=== PATIENT | male | born 1960 | race Caucasian/White ===

== ENCOUNTER 2023-10-27 21:34 | Inpatient (IN) | payer OTHER, SELFPAY ==
[2023-10-27 16:19] VITALS: BP 126/93
[2023-10-27] MEDS: NSS 1000 IV ×2 (16:54→22:39)
[2023-10-27 16:57] LABS: % Basophils 0.4 % (0-2); % Eosinophils 1.2 % (0-6); % Immature Granulocytes 0.2 % (0-0.5); % Lymphocytes 19.1 % (20.5-51.1); % Monocytes 8.6 % (1.7-9.3); % Neutrophils 70.5 % (42.2-75.2); Absolute Eosinophils 0.1 10^3/uL (0-0.7); Absolute Lymphocytes 1.7 10^3/uL (1.2-3.4); Absolute Monocytes 0.8 10^3/uL (0.1-0.6); Absolute Neutrophils 6.4 10^3/uL (1.4-6.5); Hematocrit 39.6 % (39.0-52.0); Hemoglobin 13.1 g/dL (13.0-18.0); Mean Corp Hgb Conc. 33.1 g/dL (33.0-37.0); Mean Corpuscular Volume 87.8 fL (80.0-94.0); Mean Platelet Volume 8.8 fL (7.4-10.4); Nucleated Red Blood Cells % 0 % (-); Platelet Count 344 10^3/uL (130-400); Red Blood Cell Count 4.51 10^6/uL (4.70-6.10); Red Cell Dist. Width 12.8 % (11.5-14.5); White Blood Cell Count 9.1 10^3/uL (4.8-10.8)
--- NOTE | 2023-10-27 17:01 | ED.GENMED ---
History of Present Illness
<Katheryn Hayes EXTENSION SERVICE ADVISOR - Last Filed: 10/29/23 13:38>
General
Chief Complaint: Abdominal Pain
Source: patient
Exam Limitations: none
Time Seen by Provider: 10/27/23 16:29
Nursing documentation reviewed up to this point in time: agreed with
Travel History
Have you had any contact with someone who has COVID-19?: No
Do you have any symptoms of coronavirus? Fever > 100 degrees, chills, cough, shortness of breath, sore throat, loss of taste or smell, muscle aches, or headache?: No
History of Present Illness
History of Present Illness:
63-year-old male with history of HTN, HLD, small bowel resection after perforation in 2010 presents with right lower quadrant pain. Patient states 4 days ago he developed 6/10 generalized abdominal pain that was somewhat relieved with Advil. He
states the pain has gradually moved to his right lower quadrant and is now 2/10 and feels distended. He had loose stools yesterday and today but no significant diarrhea. He denies nausea or vomiting.
Past History
<Katheryn Hayes EXTENSION SERVICE ADVISOR - Last Filed: 10/29/23 13:38>
Past History
ED Past Medical History: HTN and Hypercholesterolemia
ED Past Surgical History: Orthopedic
Social History
Tobacco: Non-smoker
Alcohol: Occasional
Personal:
Living: with family
Employment: Employed (Physical therapy)
Family History
Family History: Negative Early CAD
Review of Systems
<Katheryn Hayes, EXTENSION SERVICE ADVISOR - Last Filed: 10/29/23 13:38>
Review of Systems
Allergies reviewed?: Yes
All Other Systems: ROS reviewed and negative except as documented in HPI and ROS
Constitutional: Denies fever or chills
Respiratory: Denies trouble breathing
Cardiac: Denies chest pain
ABD/GI: Reports abdominal pain (feels bloated) and diarrhea (loose stools today and yesterday); Denies nausea, vomiting, bloody stools, black stools or anorexia
: Denies dysuria, difficulty voiding or urgency
Musculoskeletal: Reports no symptoms
Skin: Reports no symptoms
Neurological: Reports no symptoms
Phy Exam
<Katheryn Hayes, EXTENSION SERVICE ADVISOR - Last Filed: 10/29/23 13:38>
Physical Exam
Physical Exam:
GENERAL: No acute distress. A&Ox3.
CONSTITUTIONAL: Afebrile.
EYES: Clear, conjunctivae normal
ENMT: moist mucus membranes, Pharynx nl
RESPIRATORY: Regular respirations, nonlabored, lungs clear.
CARDIOVASCULAR: Regular rate and rhythm, no murmurs, no rubs.
GI: Soft, mildly tender right lower quadrant to deep palpation, no rebound tenderness. Nondistended, normal BS
MUSCULOSKELETAL: Moves with ease. Well perfused.
SKIN: Warm, dry, pink
PSYCH: Normal mood and affect. Well kept, interactive and appropriate
NEUROLOGIC: Awake, alert and oriented. No focal neurological deficits
Course
<Katheryn Hayes, EXTENSION SERVICE ADVISOR - Last Filed: 10/29/23 13:38>
Orders/Labs/Results
Orders:
Orders
10/27/23 16:42
IV Insert/Care/Rem.- Treatment PRN
0.9% Sodium Chloride 1000 ml [Nss] 1,000 ml IV BOLUS
10/27/23 16:51
Complete Blood Count/With Diff Urgent
Comprehensive Metabolic Panel Urgent
Lipase Urgent
10/27/23 17:01
Iohexol [Omnipaque] See Protocol PO NOW STA
10/27/23 17:02
CT Abd/pel W Iv And Oral Contr Urgent
Comment:
Reason For Exam: Right side abdominal pain, hx small bowel resectio
10/27/23 20:10
Piperacillin/Tazo 3.375 Gram [Zosyn] 3.375 gram in 50 ml IV NOW
10/27/23 20:19
Stool Culture Urgent
CINDY Source: Feces/Stool
Specimen Description:
Date Specimen was Collected: 10/29/23
Time Specimen was Collected: 09:13
Yersinia Culture-Stool Urgent
CINDY Source: Feces/Stool
Specimen Description:
Date Specimen was Collected: 10/29/23
Time Specimen was Collected: 09:13
10/27/23 21:07
Admit/Transfer Patient As Directed
Co-Sign Provider:
Level of Care: Inpatient admission
Assign to:: Medical/Surgical
Physician / Group: Summer/Hospitalist
Diagnosis: severe terminal ileitis with abscess
Reason for Hospitalization: severe terminal ileitis with abscess
Expected length of stay greater than two midnights?: Yes
ELOS- Estimated Length of Stay in days: 3
I certify the patient meets the requirements for IP care: Yes
10/27/23 21:08
Code Status As Directed
Resuscitation Status: Full Code
10/27/23 22:12
0.9% Sodium Chloride 1000 ml [Nss] 1,000 ml IV 80 mls/hr
Acetaminophen [Tylenol] 650 mg PO Q4HPRN PRN
HYDROmorphone [Dilaudid] 0.5 mg IV Q4HPRN PRN
Tramadol HCl [Ultram] 50 mg PO Q6HPRN PRN
10/27/23 22:12
Activity As Directed
Activity Level: As Tolerated
Pneumatic Compression Sleeves As Directed
Type: Knee high
Vital Signs As Directed
Frequency: Per unit guidelines
Pulse Ox/spot Check [RESP] Routine
Quantity: 1
DX Deep Vein Thrombosis Video Routine
10/28/23 02:00
Piperacillin/Tazo 4.5 Gram [Zosyn] 4.5 gram in 100 ml IV Q6H
10/28/23 06:40
Basic Metabolic Panel IN AM
Complete Blood Count/With Diff IN AM
Prothrombin Time IN AM
10/28/23 08:00
Lisinopril [Zestril] 10 mg PO HS
Abnormal Lab Results
10/27/23
16:51
RBC 4.51 L 10^6/uL
(4.70-6.10)
Absolute Monos (auto) 0.8 H 10^3/uL
(0.1-0.6)
Lymphocytes % 19.1 L %
(20.5-51.1)
Sodium 133 L mmol/L
(135-145)
Total Bilirubin 1.8 H mg/dl
(0.2-1.3)
10/27/23 16:51
10/27/23 16:51
Vital Signs
Initial and Last Documented VS:
Initial Vital Signs
Temp Pulse Resp BP Pulse Ox
98.5 F 112 20 126/93 98
10/27/23 16:19 10/27/23 16:19 10/27/23 16:19 10/27/23 16:19 10/27/23 16:19
Last Documented Vital Signs
Temp Pulse Resp BP Pulse Ox
98.2 F 88 16 113/78 99
10/29/23 07:30 10/29/23 07:30 10/29/23 07:30 10/29/23 07:30 10/29/23 07:30
<Rupert Washington PA-C - Last Filed: 10/27/23 20:12>
Orders/Labs/Results
Orders:
Orders
10/27/23 16:42
IV Insert/Care/Rem.- Treatment PRN
0.9% Sodium Chloride 1000 ml [Nss] 1,000 ml IV BOLUS
10/27/23 16:51
Complete Blood Count/With Diff Urgent
Comprehensive Metabolic Panel Urgent
Lipase Urgent
10/27/23 17:01
Iohexol [Omnipaque] See Protocol PO NOW STA
10/27/23 17:02
CT Abd/pel W Iv And Oral Contr Urgent
Comment:
Reason For Exam: Right side abdominal pain, hx small bowel resectio
10/27/23 20:10
Piperacillin/Tazo 3.375 Gram [Zosyn] 3.375 gram in 50 ml IV NOW
10/27/23 20:19
Stool Culture Urgent
CINDY Source: Feces/Stool
Specimen Description:
Date Specimen was Collected: 10/29/23
Time Specimen was Collected: 09:13
Yersinia Culture-Stool Urgent
CINDY Source: Feces/Stool
Specimen Description:
Date Specimen was Collected: 10/29/23
Time Specimen was Collected: 09:13
10/27/23 21:07
Admit/Transfer Patient As Directed
Co-Sign Provider:
Level of Care: Inpatient admission
Assign to:: Medical/Surgical
Physician / Group: Summer/Hospitalist
Diagnosis: severe terminal ileitis with abscess
Reason for Hospitalization: severe terminal ileitis with abscess
Expected length of stay greater than two midnights?: Yes
ELOS- Estimated Length of Stay in days: 3
I certify the patient meets the requirements for IP care: Yes
10/27/23 21:08
Code Status As Directed
Resuscitation Status: Full Code
10/27/23 22:12
0.9% Sodium Chloride 1000 ml [Nss] 1,000 ml IV 80 mls/hr
Acetaminophen [Tylenol] 650 mg PO Q4HPRN PRN
HYDROmorphone [Dilaudid] 0.5 mg IV Q4HPRN PRN
Tramadol HCl [Ultram] 50 mg PO Q6HPRN PRN
10/27/23 22:12
Activity As Directed
Activity Level: As Tolerated
Pneumatic Compression Sleeves As Directed
Type: Knee high
Vital Signs As Directed
Frequency: Per unit guidelines
Pulse Ox/spot Check [RESP] Routine
Quantity: 1
DX Deep Vein Thrombosis Video Routine
10/28/23 02:00
Piperacillin/Tazo 4.5 Gram [Zosyn] 4.5 gram in 100 ml IV Q6H
10/28/23 06:40
Basic Metabolic Panel IN AM
Complete Blood Count/With Diff IN AM
Prothrombin Time IN AM
10/28/23 08:00
Lisinopril [Zestril] 10 mg PO HS
Abnormal Lab Results
10/27/23
16:51
RBC 4.51 L 10^6/uL
(4.70-6.10)
Absolute Monos (auto) 0.8 H 10^3/uL
(0.1-0.6)
Lymphocytes % 19.1 L %
(20.5-51.1)
Sodium 133 L mmol/L
(135-145)
Total Bilirubin 1.8 H mg/dl
(0.2-1.3)
10/27/23 16:51
10/27/23 16:51
Vital Signs
Initial and Last Documented VS:
Initial Vital Signs
Temp Pulse Resp BP Pulse Ox
98.5 F 112 20 126/93 98
10/27/23 16:19 10/27/23 16:19 10/27/23 16:19 10/27/23 16:19 10/27/23 16:19
Last Documented Vital Signs
Temp Pulse Resp BP Pulse Ox
98.2 F 88 16 113/78 99
10/29/23 07:30 10/29/23 07:30 10/29/23 07:30 10/29/23 07:30 10/29/23 07:30
<Katheryn Hayes, EXTENSION SERVICE ADVISOR - Last Filed: 10/29/23 13:38>
MDM/Problems Addressed
Differential Diagnosis Includes:
appendicitis, bowel obstruction, colitis, diverticulitis
MDM/Problems Addressed:
63-year-old male with history of HTN, HLD, small bowel resection after perforation in 2010 presents with right lower quadrant pain. Patient states 4 days ago he developed 6/10 generalized abdominal pain that was somewhat relieved with Advil. He
states the pain has gradually moved to his right lower quadrant and is now 2/10 and feels distended. He had loose stools yesterday and today but no significant diarrhea. He denies nausea or vomiting.
Afebrile, NAD
10/27/2023 1724 PM
CBC normal
CMP normal
Lipase normal
10/27/2023 1730 PM
Pt prepping for Abd CT with IV and po contrast
Case discussed with KIMBERLY Reyes who will assume care from this point.
<Rupert Washington PA-C - Last Filed: 10/27/23 20:12>
*Critical Care Note
Total Time (30-74mins, 75-104mins- exclusive of procedures): Not Applicable
<Rupert Washington PA-C - Last Filed: 10/27/23 20:12>
Update Note
Update Note:
Assumed care of patient at shift change 1800 from Ella hayes EXTENSION SERVICE ADVISOR. Patient was in with diffuse abdominal pain localized to right lower quadrant. Needs imaging for appendicitis rule out. Drinking p.o. contrast will be scanned at approximately 1930
:10/27/[address] report reviewed showing evidence for terminal ileitis with abscess formation. Will start IV antibiotics and admit
ED Attending Note
<Katheryn Hayes EXTENSION SERVICE ADVISOR - Last Filed: 10/29/23 13:38>
-
Portions of this chart may have been created with voice recognition software.� Occasional wrong word or��sound alike� substitutions may have occurred due to the inherent limitations of voice recognition software.
Discharge Plan
Departure
Patient Disposition: Admit
Date of Disposition: 10/27/23
Time of Disposition: 20:11
Presentation/result/management discussed w/ accepting MD/DO: Hospitalist
Discharge Problem:
Terminal ileitis, Intra-abdominal abscess
Interventions
Interventions:
*Risk Screen - Suicide Last Done: 10/27/23 22:20
*General Assessment Last Done: 10/27/23 16:50
*Neglect/Abuse Screening Last Done: 10/27/23 16:56
ED- Fall Risk Assessment Last Done: 10/27/23 16:55
*ED COVID-19 Vaccine History Last Done: 10/27/23 22:20
WJ-Ysdrmn-Hxnoirjsrr Assessment Last Done: 10/27/23 16:55
Discharge Date and Time
Discharge Date/Time: 10/27/23 22:09
[2023-10-27 17:15] LABS: ALT (SGPT) 19 U/L (0-50); AST (SGOT) 23 U/L (17-59); Albumin 4.1 g/dl (3.5-5.0); Alkaline Phosphatase 109 U/L (38-126); Blood Urea Nitrogen 14 mg/dl (9-20); Calcium 8.5 mg/dl (8.4-10.2); Carbon Dioxide 25 mmol/L (22-30); Chloride 101 mmol/L (98-107); Glucose 94 mg/dl (70-99); Lipase 70 U/L (23-300); Potassium 4.6 mmol/L (3.5-5.1); Sodium 133 mmol/L (135-145); Total Bilirubin 1.8 mg/dl (0.2-1.3); eGFR > 60.00
[2023-10-27] MEDS: OMNIPAQUE 50 ML PO (17:20)
[2023-10-27] MEDS: ZOSYN 50 IV (20:16)
[2023-10-27 20:18] VITALS: BP 146/89
--- NOTE | 2023-10-27 20:19 | HPS.HSE ---
Family Physician
-
Family Physician: Larry Romero
Chief Complaint
-
abdominal pain
History of Present Illness
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
pain taht started 4 days ago at 6/10 generalized abdominal pain that was somewhat relieved with Advil. Pain localized to the RLQ, currently 2/10, associated with abdominal distention and loose stool yesterday and today, non-bloody. He says his last
colonoscopy was several years ago, possibly 2009, and he had polyps that he said were not biopsied and was supposed to have repeat in 5 years however he ended up having bowel perforation and resection in the interim and did not follow up for repeat
colonoscopy. He has inguinal hernia left side, and he was concerned that a colonoscopy could perforate his hernia, and so has been hesitant to return for follow up. He has intermittent chronic abdominal pain that is generalized, over the past
several years that he treats at home with bowel rest. No fever, no n/v, no CP, no SOB.
ED txt : IV Zosyn, IV fluids 1 liter NS
Medical History
Past Medical History
Past Medical History: Reports HTN, Hypercholesterolemia and Other (Meckel Diverticulitis, perforated ileal diverticulum)
Past Surgical History: Reports Orthopedic and Other (Laparoscopy, segmental small bowel resection, peritoneal lavage and drainage (2010))
Social History
Tobacco: Non-smoker
Alcohol: Occasional
Personal:
Living: With Family
Family History
Family History: Other (patient denies)
Allergies / Home Medications
Allergies reflects when Allergies were last updated in [facility].
Home Medications with original date entered in [facility]
Allergy/Medication List:
Allergies
Allergy/AdvReac Type Severity Reaction Status Date / Time
No Known Allergies Allergy Unverified 10/27/23 16:21
Home Medications
aspirin 81 mg tablet,delayed release (Aspir-) 81 mg PO HS -takes this a few times a week
ibuprofen 200 mg capsule (Advil Liqui-Gel) 200 mg PO PRN
lisinopril 10 mg tablet 10 mg PO daily
Review of Systems
-
A 12 point ROS was completed and negative except as noted: Yes
Physical Exam
Vital Signs
Vital Signs
Temp Pulse Resp BP Pulse Ox
98.5 F 98 18 146/89 96
10/27/23 16:19 10/27/23 20:18 10/27/23 20:18 10/27/23 20:18 10/27/23 20:18
Physical Exam
General: Well Developed, Well Nourished, Comfortable and Conversant
HEENT: NormoCephalic, Anicteric and Moist mucous membranes
Respiratory: Clear
Cardiac: S1/S2 and Regular Rhythm
GI: Soft, Normal Bowel Sounds and Tender (RLQ, no guarding, no rebound)
Musculoskeletal: No Clubbing, No Cyanosis and No Edema
Skin: Warm and Dry
Neuro: AO x 3 and No Motor Deficits
Psych: Calm
Laboratory Results
-
10/27/23 16:51
10/27/23 16:51
Laboratory Results
Total Bilirubin 1.8 mg/dl (0.2-1.3) H 10/27/23 16:51
AST 23 U/L (17-59) 10/27/23 16:51
ALT 19 U/L (0-50) 10/27/23 16:51
Alkaline Phosphatase 109 U/L (38-126) 10/27/23 16:51
Lipase 70 U/L (23-300) 10/27/23 16:51
Data Reviewed
-
CT Scan: Report Reviewed by me (CT a/p Severe wall thickening and inflammatory change of the terminal ileum just proximal to the ileocecal valve with surrounding edema/fluid and abscess formation measuring up to 2.4 x 2.3 x 3.2 cm )
Impression/Plan
-
IMPRESSION:
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
pain taht started 4 days ago at 6/10 generalized abdominal pain He says his last colonoscopy was several years ago, possibly 2009, and he had polyps that he said were not biopsied and was supposed to have repeat in 5 years however he ended up having
bowel perforation and resection in the interim and did not follow up for repeat colonoscopy. He has inguinal hernia left side.
CT findings -�Severe wall thickening and inflammatory change of the terminal ileum just proximal to the ileocecal valve with surrounding edema/fluid and abscess formation measuring up to 2.4 x 2.3 x 3.2 cm�
ED txt : IV Zosyn, IV fluids 1 liter NS
#Severe terminal ileitis with abscess formation�
-Surgery consultation appreciated
-Continue IV Zosyn, IVF, NPO x ice chips and medications for now
-GI consultation
-serial monitoring of abdomen
-pain management, anti-emetics as needed
Hyperbilirubinemia with normal AST and ALT, prior work-up in 2010, possibly chronically elevated Tbili 1.8
HTN, stable
-continue lisinopril
DVT proph-PCDs
Full Code
[2023-10-27 22:15] VITALS: BP 134/93
[2023-10-27 22:24] VITALS: BMI 27.5
[2023-10-27] MEDS: TYLENOL 650 MG PO (22:53)
--- NOTE | 2023-10-27 23:33 | PTCARENOTE ---
Patient arrived to unit via stretcher around 22:05 with dx of severe terminal ileitis with abscess. AAOx3. Pleasant and cooperative with care. Vitals stable. Oriented to unit. Call hankins within reach.
[2023-10-28] VITALS (9 sets, daily range): BP systolic 80–137; BP diastolic 67–88
[2023-10-28] MEDS: ZOSYN 100 IV ×4 (02:08→19:55)
[2023-10-28] MEDS: NSS 1000 IV ×2 (07:53→20:42)
[2023-10-28] MEDS: ZESTRIL 10 MG PO ×2 (08:11→20:59)
[2023-10-28] MEDS: ULTRAM 50 MG PO ×3 (08:11→20:41)
[2023-10-28 08:15] LABS: % Basophils 0.4 % (0-2); % Eosinophils 1.6 % (0-6); % Immature Granulocytes 0.2 % (0-0.5); % Monocytes 10.9 % (1.7-9.3); % Neutrophils 68.9 % (42.2-75.2); Absolute Eosinophils 0.1 10^3/uL (0-0.7); Absolute Lymphocytes 1.6 10^3/uL (1.2-3.4); Absolute Neutrophils 6.1 10^3/uL (1.4-6.5); Hematocrit 37.2 % (39.0-52.0); Hemoglobin 12.1 g/dL (13.0-18.0); Mean Corp Hgb Conc. 32.5 g/dL (33.0-37.0); Mean Corpuscular Volume 89.2 fL (80.0-94.0); Mean Platelet Volume 9.2 fL (7.4-10.4); Nucleated Red Blood Cells % 0 % (-); Platelet Count 334 10^3/uL (130-400); Red Blood Cell Count 4.17 10^6/uL (4.70-6.10); White Blood Cell Count 8.9 10^3/uL (4.8-10.8)
[2023-10-28 08:18] LABS: INR 1.25; PT 15.5 Sec (11.4-14.6)
--- NOTE | 2023-10-28 08:27 | CON.GI ---
Addendum entered and electronically signed by Manuela Camacho MD 10/28/23 13:25:
I saw and examined the patient.
The COLORECTAL SURGEON's note was reviewed and I agree with the note.
Comment: This is a 63-year-old male who has a history of Meckel's diverticulum with perforation in 2010 with resection of the diverticulum and small bowel resection about 15 cm of the TI was removed at that time who now presents to the emergency
room with symptoms of right lower quadrant abdominal pain X 4 days. He says his colonoscopy was in 2006 was unremarkable other than diverticulosis. After his surgery in 2010 he did have imaging studies showing probable anastomotic stricture when
he presented with partial small bowel obstruction but subsequent images did not reveal the stricture. He also had seen GI in the past and was apparently told he did not have Crohn's disease but since the surgery he has had intermittent episodes
where he has abdominal pain with bloating. He denies constipation or diarrhea or rectal bleeding. CT this admission shows severe terminal ileitis with 3 cm abscess with no evidence of obstruction or perforation noted
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
resection in 2010. Will also need to rule out Crohn's disease although he says prior workup was unremarkable. Would recommend getting a CTE or MRE/SBFT in 4 to 6 weeks and colonoscopy in 6 to 8 weeks and may need resection or revision of
anastomosis if there is evidence of anastomotic stricture. Agree with antibiotics on Zosyn and IR consult to see if the abscess is amenable to percutaneous drainage, noted input from colorectal surgery also. Currently has no evidence of
perforation or obstruction so no indication for emergent surgery. continue clear liquids as tolerated. Will also get IBD serologies as outpatient. Will hold off on empiric steroids for now since no clear diagnosis of Crohn's yet and also given
underlying abscess
Original Note:
Consultation
-
Date/Time Consultation Requested: 10/28/23819
Date/Time Consultation Performed: 10/28/23829
Requesting Provider: Carmine Vaughan MD
Performing Provider: AMOS Olson, Manuela Camacho MD
Reason for Consultation: terminal ileitis with abscess
Medical History
Chief Complaint / HPI
Chief Complaint: abdominal pain
History of Present Illness:
Pt is a 63yo with hx Meckel's diverticulum with perforation in 2010 with SB resection, inguinal hernia, HTN, hyperlipidemia, elevated bilirubin with onset of intermittent lower abdominal pain with worsening symptoms. CT on admission with Severe
terminal ileitis with abscess formation as described.� No obstruction. In reviewing with patient he had stable colonoscopy in 2006 with diverticulosis. He then has surgery in 2010 with prolonged post-op course. He had several imaging studies in
last 2010 and early 2011 with narrowing and resolution months later. He recalls follow up with [facility] and Dr. Bowden without concern for crohns but deferred follow up colonoscopy as concern as he developed inguinal hernia. He will
typically have several episodes per year with nausea, bloating, and abdominal pain but will have continued bowel function with occasional diarrhea after episodes. He now presents with worsening pain with different pain in RLQ. Ct on admission with
concern for severe ileitis with abscess.
Pt admits to low grade fever 99 and a few lb wt loss with currently 3/10 abdominal pain. He did have diarrhea a few days ago with typically regular stools. He has occasional chronic GERD. he denies dysphagia, nausea/vomiting, blood or black in
stools.
Past Medical History
Past Medical History: HTN, Hypercholesterolemia and Other (prior elevated bilirubin with normal direct bili - gilbert's, inguinal hernia)
Past Surgical History: Bowel Resection (SB resection 2010 with meckel's diverticulum)
Social History
Tobacco: Non-Smoker
Alcohol: Occasional
Drug: Marijuana (rare in past)
Personal:
Living: With Family
Employment: Employed
Family History
Family History: Other (no family hx colon CA/polyps, father with hx diverticular resection)
Allergies / Home Medications
Allergy/AdvReac Type Severity Reaction Status Date / Time
No Known Allergies Allergy Unverified 10/27/23 16:21
Medication Instructions Recorded
aspirin 81 mg tablet,delayed 81 mg PO HS 06/20/11
release (Aspir-)
ibuprofen 200 mg capsule (Advil 200 mg PO PRN PRN pain 06/20/11
Liqui-Gel)
lisinopril 10 mg tablet 10 mg PO HS 06/20/11
Review of Systems
-
History Source: Patient
Constitutional: Reports Fever (low grade ) and Weight Loss (few lbs)
EENT: Reports No Symptoms
Respiratory: Reports No Symptoms
Cardiac: Reports No Symptoms
Abdomen/GI: Reports Abdominal Pain and Diarrhea (few days ago)
: Reports No Symptoms
Musculoskeletal: Reports No Symptoms
Skin: Reports No Symptoms
Neurological: Reports No Symptoms
Endocrine: Reports No Symptoms
Hematologic/Lymphatic: Reports No Symptoms
Vital Signs
Temp Pulse Resp BP Pulse Ox
98.2 F 96 20 134/93 96
10/27/23 22:15 10/27/23 22:15 10/27/23 22:15 10/27/23 22:15 10/27/23 22:30
Physical Exam
Exam
General: Well Developed, Well Nourished and No Apparent Distress
HEENT: Normocephalic and Anicteric
Respiratory: Clear
Cardiac: Regular Rhythm
GI: Soft, Non Distended and Tender (RLQ )
Musculoskeletal: No Clubbing and No Cyanosis
Skin: Warm and Dry
Neuro: Awake, Alert and AO x 3
Psych: Calm
Results
WBC 9.1 10^3/uL (4.8-10.8) 10/27/23 16:51
Hgb 13.1 g/dL (13.0-18.0) 10/27/23 16:51
Hct 39.6 % (39.0-52.0) 10/27/23 16:51
MCV 87.8 fL (80.0-94.0) 10/27/23 16:51
Plt Count 344 10^3/uL (130-400) 10/27/23 16:51
Absolute Neuts (auto) 6.4 10^3/uL (1.4-6.5) 10/27/23 16:51
PT 15.5 Sec (11.4-14.6) H 10/28/23 06:40
INR 1.25 10/28/23 06:40
Sodium 133 mmol/L (135-145) L 10/27/23 16:51
Potassium 4.6 mmol/L (3.5-5.1) 10/27/23 16:51
Chloride 101 mmol/L (98-107) 10/27/23 16:51
Carbon Dioxide 25 mmol/L (22-30) 10/27/23 16:51
BUN 14 mg/dl (9-20) 10/27/23 16:51
Creatinine 1.1 mg/dL (0.7-1.3) 10/27/23 16:51
Calcium 8.5 mg/dl (8.4-10.2) 10/27/23 16:51
Total Bilirubin 1.8 mg/dl (0.2-1.3) H 10/27/23 16:51
AST 23 U/L (17-59) 10/27/23 16:51
ALT 19 U/L (0-50) 10/27/23 16:51
Alkaline Phosphatase 109 U/L (38-126) 10/27/23 16:51
Lipase 70 U/L (23-300) 10/27/23 16:51
Diagnostic Image Results:
10/27/23 CT Abd/pel W Iv And Oral Contr CT on admission with Severe terminal ileitis with abscess formation as described.� No obstruction.
02/2020- CT Abd/pelvis W Iv Cont
1. � The anastomosis of the small bowel in the right lower quadrant is patent, however there is an adjacent loop of bowel with very mild wall thickening and slight increased enhancement suggesting mild inflammation. The differential includes
ischemia. Nonspecific finding. No obstruction.
2. � Mild wall thickening and incomplete distention of the colon from the splenic flexure to the mid descending colon, question mild inflammation. The differential includes ischemia, infection. Neoplasm is much less likely given the length of
involvement. Does the patient have any other symptoms of colitis?
3. � Diverticulosis. No CT evidence for diverticulitis. No free fluid or fluid collection. No free air.
4. � Solid organs are essentially unremarkable. Mild fatty infiltration of the liver.
5. � Small paraumbilical hernia. Left inguinal hernia contains a loop of bowel, no obstruction.
Prior GI Procedures:
EGD:
Colonoscopy: 2007 bekah diverticulosis otherwise normal
Assessment / Plan
-
Pt is a 63yo with hx Meckel's diverticulum with perforation in 2010 with SB resection, inguinal hernia, HTN, hyperlipidemia, elevated bilirubin with onset of intermittent lower abdominal pain with worsening symptoms. CT on admission with Severe
terminal ileitis with abscess formation as described.� No obstruction. In reviewing with patient he had stable colonoscopy in 2006 with diverticulosis. He then has surgery in 2010 with prolonged post-op course. He had several imaging studies in
last 2010 and early 2011 with narrowing and resolution months later. He recalls follow up with [facility] and Dr. Bowden without concern for crohns but deferred follow up colonoscopy as concern as he developed inguinal hernia. He will
typically have several episodes per year with nausea, bloating, and abdominal pain but will have continued bowel function with occasional diarrhea after episodes. He now presents with worsening pain with different pain in RLQ. Ct on admission with
concern for severe ileitis with abscess.
-terminal ileitis with abscess
-hx meckel's diverticulum with perforation and SB resection 2010 with prolonged post-op course
-left inguinal hernia
-diverticulosis
other medical problems:
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
-HTN
-hyperlipidemia
PLAN:etiology of symptoms with concern for terminal ileitis with abscess, chronic symptoms may be intermittent partial obstruction vs underlying IBD vs other
surgery consulted to review with IR for drainage
cont abx course
will need OP follow up for eventual colonoscopy and repeat SB imaging with MRE will sent message to office to set up 3-4 week follow up
hold inflammatory markers for now as may be elevated with infectious process
NPO advance diet per surgery
-
-
Thank you for consultation and allowing me to participate in the patient's care. Please call the absorption operator GI physician during the after hours with any questions or concerns.
[2023-10-28 08:45] LABS: Blood Urea Nitrogen 12 mg/dl (9-20); Calcium 8.4 mg/dl (8.4-10.2); Carbon Dioxide 24 mmol/L (22-30); Chloride 100 mmol/L (98-107); Estimated Creatinine Clearance 76 ml/min; Glucose 87 mg/dl (70-99); Potassium 4.4 mmol/L (3.5-5.1); Sodium 135 mmol/L (135-145); eGFR > 60.00
[2023-10-28 09:14] LABS: Direct Bilirubin 0.6 mg/dl (0.0-0.4)
--- NOTE | 2023-10-28 09:38 | W.PN.HOSP.TC ---
Today's Communication/Plan
-
Continue IV fluids IV antibiotic
Appreciate colorectal surgery and GI input as noted and will follow
Serial monitoring of abdomen
Assessment / Plan
Assessment / Plan
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
pain taht started 4 days ago at 6/10 generalized abdominal pain that was somewhat relieved with Advil. Pain localized to the RLQ, currently 2/10, associated with abdominal distention and loose stool yesterday and today, non-bloody. He says his last
colonoscopy was several years ago, possibly 2009, and he had polyps that he said were not biopsied and was supposed to have repeat in 5 years however he ended up having bowel perforation and resection in the interim and did not follow up for repeat
colonoscopy. He has inguinal hernia left side, and he was concerned that a colonoscopy could perforate his hernia, and so has been hesitant to return for follow up.� He has intermittent chronic abdominal pain that is generalized, over the past
several years that he treats at home with bowel rest.� No fever, no n/v, no CP, no SOB.
ED txt : IV Zosyn, IV fluids 1 liter NS
#Severe terminal ileitis with abscess formation�
-Also history of Meckel's diverticulum with perforation and small bowel resection 2010
-Left inguinal hernia
-Surgery consultation appreciated/presently continue antibiotic with noninvasive management
-Consideration for interventional radiology abscess drainage if no response
-Continue IV Zosyn, IVF, NPO x ice chips and medications for now
-GI consultation appreciated and plan will be outpatient colonoscopy once inflammatory process sounds
-serial monitoring of abdomen
-pain management, anti-emetics as needed
Hyperbilirubinemia with normal AST and ALT, prior work-up in 2010, possibly chronically elevated Tbili 1.8/[place]
HTN, stable
-continue lisinopril
DVT proph-PCDs
Full Code
Anticipated Discharge: 24 - 48 hours
Subjective/Interval History
-
Date of Service: October 28, 2023
Patient feels a little better than when he came in with less abdominal pain similar to previous attacks he has had and actually states this 1 in particular seems to be a little less severe.
Objective Data
-
Labs:
Laboratory Results
10/28/23
06:40
WBC 8.9
Hgb 12.1 L
Hct 37.2 L
Plt Count 334
PT 15.5 H
INR 1.25
Sodium 135
Potassium 4.4
Chloride 100
Carbon Dioxide 24
BUN 12
Creatinine 1.1
Glucose 87
Calcium 8.4
Vital Signs:
Vital Signs
Temp Pulse Resp BP Pulse Ox
98.3 F 77 16 116/72 95
10/28/23 07:30 10/28/23 07:30 10/28/23 07:30 10/28/23 07:30 10/28/23 07:30
I&O
10/27/23 10/28/23 10/29/23
06:59 06:59 06:59
Intake Total 1220 / 1220
Balance 1220 / 1220
Review of Systems
-
History Source: Patient
Constitutional: Reports No Symptoms
Respiratory: Reports No Symptoms
Cardiac: Reports No Symptoms
Abdomen/GI: Reports Abdominal Pain
Physical Exam
-
General: Well Developed
HEENT: Normocephalic
Respiratory: Clear to Auscultation
Cardiac: Regular Rhythm
GI: Soft and Tender (Mildly right upper and lower quadrant)
Genito-urinary: No Costovertebral Tender
Musculoskeletal: No Clubbing
Skin: Warm
Neuro: Awake, Alert, Oriented and AO x 3
Data Reviewed
-
Total Time Spent with Patient (in minutes): 45
CT Scan: Report Reviewed by me (CT Scan: Report Reviewed by me (CT a/p Severe wall thickening and inflammatory change of the terminal ileum just proximal to the ileocecal valve with surrounding edema/fluid and abscess formation measuring up to 2.4
x 2.3 x 3.2 cm ))
Labs: Labs Reviewed by me
--- NOTE | 2023-10-28 10:12 | CON.CRS ---
Consultation
-
Date/Time Consultation Requested: 10/28/2023, 08:21
Date/Time Consultation Performed: 10/28/2023, 08:30
Requesting Provider: Romeo Vaughan MD
Performing Provider: Adalberto Storey MD
Reason for Consultation: abdominal abscess
Medical History
-
Chief Complaint: abdominal pain
History of Present Illness:
63-year-old male with a past medical history of medical diverticulitis and perforated ileal diverticulum status post small bowel resection in 2010, presents to the emergency department complaining of right lower quadrant abdominal pain that started
about 4 days ago. The patient states this type of pain happens 3-6 times a year ever since his surgery. His bowels are usually regular but since the onset of pain have been more loose in nature. He denies any bleeding. He denies nausea or
vomiting. His last colonoscopy was prior to his surgery in 2010 where he had polyps. He had a Cologuard several years ago which was negative. He denies a personal or family history of Crohn's disease. He had apparently been worked up for Crohn's
disease in the past by a GI doctor Pancho and it was ruled out.
CT of the abdomen pelvis in the ER showed severe terminal ileitis with abscess formation measuring up to 2.4 x 2.3 x 3.2 cm. There is no evidence of obstruction or perforation. His WBC is 8.9. He is afebrile and his vitals are normal. We have
been consulted for further surgical opinion.
Past Medical History
Past Medical History: HTN, Hypercholesterolemia and Other (Meckel Diverticulitis, perforated ileal diverticulum)
Past Surgical History: Orthopedic (Left knee surgery in 1979) and Other (Laparoscopy, segmental small bowel resection, peritoneal lavage and drainage (2010) by Dr. Lanza)
Social History
Tobacco: Non-Smoker
Alcohol: Occasional
Drug: None
Personal: Single
Family History
Family History: Reviewed & Not Pertinent
Allergies / Home Medications
Allergy/AdvReac Type Severity Reaction Status Date / Time
No Known Allergies Allergy Unverified 10/27/23 16:21
Medication Instructions Recorded Confirmed Type
aspirin 81 mg tablet,delayed 81 mg PO HS 06/20/11 10/27/23 History
release (Aspir-)
ibuprofen 200 mg capsule (Advil 200 mg PO PRN PRN pain 06/20/11 10/27/23 History
Liqui-Gel)
lisinopril 10 mg tablet 10 mg PO HS 06/20/11 10/27/23 History
Review of Systems
-
History Source: Patient
Abdomen/GI: Abdominal Pain and Diarrhea
A 10 point review of systems was completed, and was negative except as per HPI.
Physical Exam
Vital Signs
Temp 98.3 F 10/28/23 07:30
Pulse 77 10/28/23 07:30
Resp Rate 16 10/28/23 07:30
Blood pressure 116/72 10/28/23 07:30
SaO2 95 10/28/23 07:30
10/27/23 10/28/23 10/29/23
06:59 06:59 06:59
Actual Weight 91.767 kg
Body Mass Index (BMI) 27.5
Lab Results / Allergies
10/28/23 06:40
10/28/23 06:40
WBC 8.9 10^3/uL (4.8-10.8) 10/28/23 06:40
Hgb 12.1 g/dL (13.0-18.0) L 10/28/23 06:40
Hct 37.2 % (39.0-52.0) L 10/28/23 06:40
Plt Count 334 10^3/uL (130-400) 10/28/23 06:40
Abs Immat Gran (auto) 0.0 10^3/uL (0-0.05) 10/28/23 06:40
Neutrophils % 68.9 % (42.2-75.2) 10/28/23 06:40
Allergy/AdvReac Type Severity Reaction Status Date / Time
No Known Allergies Allergy Unverified 10/27/23 16:21
Physical Exam
General: Well Developed, Well Nourished and No Apparent Distress
GI: Soft, Non Distended and Tender (Right lower quadrant, mild)
Skin: Warm and Dry
Neuro: AO x 3
Psych: Calm
Data Reviewed
-
CT Scan: Image Personally Visualized and interpreted, Report Reviewed by me and Discussed with Patient
Labs: Labs Reviewed by me, Discussed with Physician and Discussed with Patient
Old Records: Reviewed
Assessment / Plan
-
Assessment: 33-year-old male with a past medical history of Meckel diverticulitis status post segmental small bowel resection in 2010, presents emergency department right lower quadrant pain that happens several times a year with an abscess was
noted in the terminal ileum on CT.
Plan:
Discussed treatment at length with patient. There is no need for surgery at this time. If he worsens he will require a colectomy with colostomy creation. For now we will treat the abscess with antibiotics. IR has been consulted for possible
drainage of the abscess. Remain n.p.o. until evaluated by IR. Recommend a gastroenterology consult for further workup for possible Crohn's disease. Discussed plan with hospitalist.
--- NOTE | 2023-10-28 11:36 | CM ---
Patient seen bedside, initial assessment completed. Patient reports he resides with his family in a multiple story home, two steps to enter. Patient denies DME, VN, or SNF. Patient confirms PCP Dr. Romero, pharmacy [facility]. CM will continue
to follow for discharge planning needs.
Plan; home no needs anticipated, pending further medical assessment.
[2023-10-28] MEDS: OMNIPAQUE 50 ML PO (14:19)
--- NOTE | 2023-10-28 17:13 | W.PN.UPDATE ---
Update Note
Progress Note Update
CT guided drainage catheter placed, yielding 13 cc grossly purulent fluid. Sent for C+S. Placed 8.5 sudanese drain.
[2023-10-28] MEDS: NSS IV (21:20)
[2023-10-29] MEDS: ZOSYN 100 IV ×4 (01:51→20:06)
[2023-10-29] MEDS: NSS 1000 IV ×2 (05:11→13:09)
--- NOTE | 2023-10-29 06:34 | W.PN.GI.CBS2 ---
Today's Communication / Plan
-
See assessment and plan for details.
Assessment / Plan
-
1. Right lower quadrant abscess: With ileitis that may be more reactionary rather than cause, with chronic symptoms since resection for Meckel's diverticulum, likely more related to anastomotic stricture, possible fistulization from this.
Underlying Crohn's disease seems much less likely. He is now status post IR drainage, and overall feeling much better, with improved tenderness and only serosanguineous output. There is no obvious rafael perforation on CT scan and he remains
benign. At this point we will start clear liquid diet and continue observation. He has been seen by surgery. Assuming he continues to improve would plan outpatient MR enterography and colonoscopy in the next 6 to 8 weeks, and if negative may need
to consider revision of anastomosis. We discussed a very low residue diet going forward once he is discharged.
Subjective
Subjective
Date of Service: October 29, 2023
Patient feeling better overall, less pain, no fevers or chills, around 15 cc of purulent drainage yesterday, though overnight some small mount of serosanguineous fluid in BERAN.
Objective
Data Reviewed
Laboratory Data:
Laboratory Results
PT 15.5 Sec (11.4-14.6) H 10/28/23 06:40
INR 1.25 10/28/23 06:40
Total Bilirubin 1.8 mg/dl (0.2-1.3) H 10/27/23 16:51
AST 23 U/L (17-59) 10/27/23 16:51
ALT 19 U/L (0-50) 10/27/23 16:51
Alkaline Phosphatase 109 U/L (38-126) 10/27/23 16:51
Lipase 70 U/L (23-300) 10/27/23 16:51
Vital Signs and I&O:
Vital Signs
Temp Pulse Resp BP Pulse Ox
98.6 F 86 18 109/69 97
10/28/23 23:05 10/28/23 23:05 10/28/23 23:05 10/28/23 23:05 10/28/23 23:05
I&O
10/27/23 10/28/23 10/29/23
06:59 06:59 06:59
Intake Total 1220 / 1220 1989
Output Total 50 / 50
Balance 1220 / 1220 1939
Physical Exam
Physical Exam
General: NAD
Abdomen: normal bowel sounds, soft, mild and improved right lower quadrant tenderness, no rebound
[2023-10-29 07:30] VITALS: BP 113/78
[2023-10-29] MEDS: ULTRAM 50 MG PO ×2 (07:57→22:09)
[2023-10-29 09:28] LABS: Hematocrit 36.6 % (39.0-52.0); Hemoglobin 11.9 g/dL (13.0-18.0); Mean Corp Hgb Conc. 32.5 g/dL (33.0-37.0); Mean Corpuscular Hgb 28.8 pg (27.0-31.0); Mean Corpuscular Volume 88.6 fL (80.0-94.0); Mean Platelet Volume 8.9 fL (7.4-10.4); Platelet Count 322 10^3/uL (130-400); Red Blood Cell Count 4.13 10^6/uL (4.70-6.10); Red Cell Dist. Width 12.9 % (11.5-14.5); White Blood Cell Count 7.7 10^3/uL (4.8-10.8)
[2023-10-29 09:53] LABS: Blood Urea Nitrogen 11 mg/dl (9-20); Calcium 8.2 mg/dl (8.4-10.2); Carbon Dioxide 20 mmol/L (22-30); Chloride 102 mmol/L (98-107); Estimated Creatinine Clearance 76 ml/min; Glucose 75 mg/dl (70-99); Potassium 4.1 mmol/L (3.5-5.1); Sodium 135 mmol/L (135-145); eGFR > 60.00
--- NOTE | 2023-10-29 09:59 | W.PN.HOSP.TC ---
Today's Communication/Plan
-
Continue present course of Zosyn
Monitor BERNA drainage from right side
Monitor and trend leukocytosis
Monitor BMP
Reduce IV fluids
Assessment / Plan
Assessment / Plan
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
pain taht started 4 days ago at 6/10 generalized abdominal pain that was somewhat relieved with Advil. Pain localized to the RLQ, currently 2/10, associated with abdominal distention and loose stool yesterday and today, non-bloody. He says his last
colonoscopy was several years ago, possibly 2009, and he had polyps that he said were not biopsied and was supposed to have repeat in 5 years however he ended up having bowel perforation and resection in the interim and did not follow up for repeat
colonoscopy. He has inguinal hernia left side, and he was concerned that a colonoscopy could perforate his hernia, and so has been hesitant to return for follow up.� He has intermittent chronic abdominal pain that is generalized, over the past
several years that he treats at home with bowel rest.� No fever, no n/v, no CP, no SOB.
ED txt : IV Zosyn, IV fluids 1 liter NS
#Severe terminal ileitis with abscess formation�/IR inserted BERNA drain/return of initial 13 cc of purulent
-Also history of Meckel's diverticulum with perforation and small bowel resection 2010
-Left inguinal hernia
-Surgery consultation appreciated/presently continue antibiotic with noninvasive management
-Continue IV Zosyn, IVF will be reduce/placed on clear liquids and medications for now
-GI consultation appreciated and plan will be outpatient colonoscopy once inflammatory process resolved in 6 to 8 weeks
-serial monitoring of abdomen
-pain management, anti-emetics as needed
-No leukocytosis
Hyperbilirubinemia with normal AST and ALT, prior work-up in 2010, possibly chronically elevated Tbili 1.8/[place]
HTN, stable
-continue lisinopril
DVT proph-PCDs
Full Code
Anticipated Discharge: 24 - 48 hours
Subjective/Interval History
-
Date of Service: October 29, 2023
Had a loose stool this morning. Persisting right-sided abdominal pain no issues with BERNA drain
Objective Data
-
Labs:
Laboratory Results
10/29/23
08:32
WBC 7.7
Hgb 11.9 L
Hct 36.6 L
Plt Count 322
Sodium 135
Potassium 4.1
Chloride 102
Carbon Dioxide 20 L
BUN 11
Creatinine 1.1
Glucose 75
Calcium 8.2 L
Vital Signs:
Vital Signs
Temp Pulse Resp BP Pulse Ox
98.2 F 88 16 113/78 99
10/29/23 07:30 10/29/23 07:30 10/29/23 07:30 10/29/23 07:30 10/29/23 07:30
I&O
10/28/23 10/29/23 10/30/23
06:59 06:59 06:59
Intake Total 1220 / 1220 1989 / 1989
Output Total 50 / 50
Balance 1220 / 1220 1939
Review of Systems
-
History Source: Patient
Constitutional: Reports No Symptoms
EENT: Reports No Symptoms Reported
Respiratory: Reports No Symptoms
Cardiac: Reports No Symptoms
Abdomen/GI: Reports Abdominal Pain
Physical Exam
-
General: Well Developed
HEENT: Normocephalic
Respiratory: Clear to Auscultation
Cardiac: Regular Rhythm
GI: Soft, Tender and Ostomy (BERNA drain right side minimal drainage)
Skin: Warm
Neuro: Awake
Data Reviewed
-
Total Time Spent with Patient (in minutes): 45
Labs: Labs Reviewed by me (White count 7.7 hemoglobin 11.9 bicarb 20)
--- NOTE | 2023-10-29 10:14 | W.PN.CRS1 ---
Addendum entered and electronically signed by Larry Dougherty MD 10/29/23 17:18:
I saw and examined the patient.
The PA's note was reviewed and I agree with the note.
Comment:
Seen in a.m. with PA.
Pain about the same. Denies nausea or vomiting. Barely taking clears.
Vitals and white blood cell count reasonable.
Abdomen mildly distended. Mildly tender on right. Drain in place with murky output.
Continue IV antibiotics.
Clear liquid diet.
Appreciate GI input.
Will follow along.
Original Note:
Today's Communication / Plan
-
Continue IV antibiotics
Continue clears
Assessment/Plan
-
Assessment: Terminal ileitis with associated abscess
Plan:
1. Vital signs normal. WBC normal.
2. Continue IR drain. Cultures pending.
3. Continue clear liquids for today.
4. Appreciate GI consult
5. Continue IV Zosyn.
6. No plans for surgery at this time. If he were to worsen he would require an operation during this admission.
Subjective Data
Subjective Data
Date of Service: October 29, 2023
Patient states that he had a loose bowel movement yesterday. His pain is about the same. He denies nausea or vomiting. He does not have any appetite.
Objective Data
-
Vital Signs
Temp Pulse Resp BP Pulse Ox
98.2 F 88 16 113/78 99
10/29/23 07:30 10/29/23 07:30 10/29/23 07:30 10/29/23 07:30 10/29/23 07:30
Intake & Output
10/28/23 10/29/23 10/30/23
06:59 06:59 06:59
Intake Total 1220 / 1220 1989
Output Total 50 / 50
Balance 1220 / 1220 1939 / 1939
Intake:
Oral fluids 120 / 120 240 / 240
IV fluids (Total) 1000 / 1000 1500 / 1500
IV piggybacks 100 / 100 250 / 250
Output:
Drain Output (Total) 50 / 50
Right Lower Abdomen Shimon- 50
Polk Placed in IR
Other:
Number of approximated MODERATE 1 2
amounts of urine
Lab Results
10/29/23 08:32
10/29/23 08:32
Physical Exam
-
General: No Acute Distress and AOx3
Abdomen: Soft, Non Distended, Tender (Right lower quadrant) and Other (IR drain in place with purulent output)
Skin: Warm and Dry
[2023-10-29] MEDS: TYLENOL 650 MG PO ×2 (13:12→17:16)
--- NOTE | 2023-10-29 13:30 | CM ---
Patient seen bedside, reports no new concerns at this time. CM will continue to follow for discharge planning needs.
Plan; home no needs anticipated.
[2023-10-29 15:30] VITALS: BP 146/84
[2023-10-29 22:08] VITALS: BP 134/82
[2023-10-29] MEDS: ZESTRIL 10 MG PO (22:09)
[2023-10-29 22:47] VITALS: BP 150/87
[2023-10-29 23:05] VITALS: BP 150/87
[2023-10-30] MEDS: ZOSYN 100 IV ×2 (02:36→07:51)
[2023-10-30] MEDS: TYLENOL 650 MG PO ×3 (04:15→20:41)
--- NOTE | 2023-10-30 06:25 | W.PN.GI.CBS2 ---
Today's Communication / Plan
-
See assessment and plan for details.
Assessment / Plan
-
1. Right lower quadrant abscess: With ileitis that may be more reactionary rather than cause, with chronic symptoms since resection for Meckel's diverticulum, likely more related to anastomotic stricture, possible fistulization from this.
Underlying Crohn's disease seems much less likely. He is now status post IR drainage, and overall feeling much better, with improved tenderness and only serosanguineous output. There is no obvious rafael perforation on CT scan and he remains
benign. Will advance to full liquid diet, and if continue to improve possibly advance to low residue tonight or tomorrow morning. Assuming he continues to improve would plan outpatient MR enterography and colonoscopy in the next 6 to 8 weeks, and
if negative may need to consider revision of anastomosis. We discussed a very low residue diet going forward once he is discharged.
Subjective
Subjective
Date of Service: October 30, 2023
Patient feeling well, less pain, no fevers or chills overnight, having some loose stool, though overall again feels better. Small amount of serosanguineous drainage from BERNA.
Objective
Data Reviewed
Laboratory Data:
Laboratory Results
PT 15.5 Sec (11.4-14.6) H 10/28/23 06:40
INR 1.25 10/28/23 06:40
Total Bilirubin 1.8 mg/dl (0.2-1.3) H 10/27/23 16:51
AST 23 U/L (17-59) 10/27/23 16:51
ALT 19 U/L (0-50) 10/27/23 16:51
Alkaline Phosphatase 109 U/L (38-126) 10/27/23 16:51
Lipase 70 U/L (23-300) 10/27/23 16:51
Vital Signs and I&O:
Vital Signs
Temp Pulse Resp BP Pulse Ox
98.1 F 75 18 150/87 97
10/29/23 23:05 10/29/23 23:05 10/29/23 23:05 10/29/23 23:05 10/29/23 23:05
I&O
10/28/23 10/29/23 10/30/23
06:59 06:59 06:59
Intake Total 1220 / 1220 1989
Output Total 50 / 50 /
Balance 1220 / 1220 1939
Physical Exam
Physical Exam
General: NAD
Abdomen: normal bowel sounds, soft, mild right lower quadrant tenderness, no masses or bruits, no ascites
[2023-10-30 07:05] VITALS: BP 116/74
[2023-10-30 08:44] LABS: Hematocrit 37.5 % (39.0-52.0); Hemoglobin 12.2 g/dL (13.0-18.0); Mean Corp Hgb Conc. 32.5 g/dL (33.0-37.0); Mean Corpuscular Hgb 28.6 pg (27.0-31.0); Mean Platelet Volume 8.8 fL (7.4-10.4); Platelet Count 333 10^3/uL (130-400); Red Blood Cell Count 4.26 10^6/uL (4.70-6.10); Red Cell Dist. Width 12.9 % (11.5-14.5); White Blood Cell Count 6.7 10^3/uL (4.8-10.8)
--- NOTE | 2023-10-30 09:06 | W.PN.HOSP.TC ---
Today's Communication/Plan
-
Review of culture results from wound and BERNA drain with E. coli/strep species
Will get ID input for antibiotic course as outpatient
Placed on full liquids today/
Awaiting today's chemistry
Assessment / Plan
Assessment / Plan
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
pain taht started 4 days ago at 6/10 generalized abdominal pain that was somewhat relieved with Advil. Pain localized to the RLQ, currently 2/10, associated with abdominal distention and loose stool yesterday and today, non-bloody. He says his last
colonoscopy was several years ago, possibly 2009, and he had polyps that he said were not biopsied and was supposed to have repeat in 5 years however he ended up having bowel perforation and resection in the interim and did not follow up for repeat
colonoscopy. He has inguinal hernia left side, and he was concerned that a colonoscopy could perforate his hernia, and so has been hesitant to return for follow up.� He has intermittent chronic abdominal pain that is generalized, over the past
several years that he treats at home with bowel rest.� No fever, no n/v, no CP, no SOB.
ED txt : IV Zosyn, IV fluids 1 liter NS
#Severe terminal ileitis with abscess formation�/IR inserted BERNA drain/return of initial 13 cc of purulent
-Culture results growing E. coli/moderate strep/with sensitivities reported
-Also history of Meckel's diverticulum with perforation and small bowel resection 2010
-Left inguinal hernia
-Surgery consultation appreciated/presently continue antibiotic with noninvasive management
-Continue IV Zosyn, IVF will be reduce/placed on clear liquids and medications for now
-GI consultation appreciated and plan will be outpatient colonoscopy once inflammatory process resolved in 6 to 8 weeks
-serial monitoring of abdomen
-pain management, anti-emetics as needed
-No leukocytosis
Hyperbilirubinemia with normal AST and ALT, prior work-up in 2010, possibly chronically elevated Tbili 1.8/[place]
HTN, stable
-continue lisinopril
DVT proph-PCDs
Full Code
Anticipated Discharge: 24 - 48 hours
Subjective/Interval History
-
Date of Service: October 30, 2023
Tolerated clear liquids but not very large volume he is moving his bowels still ascribing some abdominal pain around location BERNA drain.
Objective Data
-
Labs:
Laboratory Results
10/30/23
08:28
WBC 6.7
Hgb 12.2 L
Hct 37.5 L
Plt Count 333
Sodium Pending
Potassium Pending
Chloride Pending
Carbon Dioxide Pending
BUN Pending
Creatinine Pending
Glucose Pending
Calcium Pending
Vital Signs:
Vital Signs
Temp Pulse Resp BP Pulse Ox
98.6 F 76 14 116/74 95
10/30/23 07:05 10/30/23 07:05 10/30/23 07:05 10/30/23 07:05 10/30/23 07:05
I&O
10/29/23 10/30/23 10/31/23
06:59 06:59 06:59
Intake Total 1989
Output Total 50 / 50 / 30
Balance 1939
Review of Systems
-
History Source: Patient
Constitutional: Reports No Symptoms
EENT: Reports No Symptoms Reported
Respiratory: Reports No Symptoms
Abdomen/GI: Reports Abdominal Pain
Physical Exam
-
General: Well Developed
HEENT: Normocephalic
Cardiac: Regular Rhythm
GI: Soft, Nontender, Nondistended, Normal Bowel Sounds and Other (BERNA drain with minimal purulent drainage)
Skin: Warm
Neuro: Awake, Alert, Oriented, AO x 3 and No Motor Deficits
Data Reviewed
-
Total Time Spent with Patient (in minutes): 45
Labs: Labs Reviewed by me (White count 6.7/BMP still pending)
[2023-10-30 09:29] LABS: Blood Urea Nitrogen 6 mg/dl (9-20); Calcium 8.5 mg/dl (8.4-10.2); Carbon Dioxide 26 mmol/L (22-30); Chloride 101 mmol/L (98-107); Estimated Creatinine Clearance 76 ml/min; Glucose 97 mg/dl (70-99); Potassium 4.3 mmol/L (3.5-5.1); Sodium 138 mmol/L (135-145); eGFR > 60.00
--- NOTE | 2023-10-30 10:43 | CON.ID ---
Consultation
-
Date/Time Consultation Requested: 10/30/23 9:16
Date/Time Consultation Performed: 10/30/23 10:43
Requesting Provider: Dr Vaughan
Performing Provider: Dr Trotter
Reason for Consultation: antibiotic management.
Chief Complaint / Past History
Chief Complaint
abdominal pain
History of Present Illness
Mr Mcgrath is a 63 year old male with history of Meckles diverticulum, perforated ileal diverticulum status post segmental small bowel resection, peritoneal lavage and drainage (2010) who presented here 10/27 for RLQ pain starting 4 days before
presntatin with RLQ pain, abdominal distension, loos stools. Overdue for colonoscopy. Reports intermittent chronic abdominal for years that he treats at home with bowel rest. Denies: fevers, bause, vomiting, chest pain, shortness of breath. Seen
in the ER afebrile, BP stable, CT with Severe wall thickening and inflammatory change of the terminal ileum just proximal to the ileocecal valve with surrounding edema/fluid and abscess formation measuring up to 2.4 x 2.3 x 3.2 cm. Seen by
colorectal surgery with differential chroinc vs chronic SB anastomosis leak, had IR place �drain with 13 ccs of purulent fluid with cultures with E coli; has been on zosyn. Planned for MR enterography and colonoscopy in 6-8 weeks. ID is consulted
for assistance with management.
Past History
Additional Past Medical History:
HTN, Hypercholesterolemia and Other (Meckel Diverticulitis, perforated ileal diverticulum)
Additional Past Surgical History:
(Laparoscopy, segmental small bowel resection, peritoneal lavage and drainage (2010))
Allergy History:
No Known Allergies Allergy (Unverified 10/27/23 16:21)
Medications Reviewed: Yes
Social History
Tobacco: Non-Smoker
Alcohol: Occasional
Drug: None
Family History
Family History: Not Pertinent
Review of Systems
Review of Systems
General: Negative Fever or Chills
All systems: All other systems were reviewed and were negative
Vital Signs
Temp Pulse Resp BP Pulse Ox
98.6 F 76 14 116/74 95
10/30/23 07:05 10/30/23 07:05 10/30/23 07:05 10/30/23 07:05 10/30/23 07:05
Physical Exam
Physical Exam
Constitutional: No Acute Distress
Cardiovascular: Regular Rate and S1/S2; Negative Murmur or Rub
Pulmonary: Clear and Symmetric; Negative Wheezes, Rales or Rhonchi
Gastrointestinal: Soft, Non Tender, Non Distended and Normal Bowel Sounds
Skin: Warm and Dry; Negative Rash or Jaundice
Lines: Other (drain - serosanguinous fluid, remains mildly turbid)
Lab / Diagnostic Study Results
10/30/23 08:28
10/30/23 08:28
Abs Immat Gran (auto) 0.0 10^3/uL (0-0.05) 10/28/23 06:40
Absolute Neuts (auto) 6.1 10^3/uL (1.4-6.5) 10/28/23 06:40
Absolute Lymphs (auto) 1.6 10^3/uL (1.2-3.4) 10/28/23 06:40
Absolute Monos (auto) 1.0 10^3/uL (0.1-0.6) H 10/28/23 06:40
Absolute Basos (auto) 0.0 10^3/uL (0-0.2) 10/28/23 06:40
Immature Gran % 0.2 % (0-0.5) 10/28/23 06:40
Neutrophils % 68.9 % (42.2-75.2) 10/28/23 06:40
Lymphocytes % 18.0 % (20.5-51.1) L 10/28/23 06:40
Monocytes % 10.9 % (1.7-9.3) H 02/05/24 06:40
Eosinophils % 1.6 % (0-6) 10/28/23 06:40
Basophils % 0.4 % (0-2) 10/28/23 06:40
PT 15.5 Sec (11.4-14.6) H 10/28/23 06:40
INR 1.25 10/28/23 06:40
Microbiology Results
Micro:
10/29/23 09:14 Salmonella/Shigella Culture - Preliminary
Feces/Stool Culture in Progress
Campylobacter Culture - Preliminary
Culture in Progress
- Preliminary
Culture in Progress
Shiga Toxin Test - Pending
10/28/23 17:06 Wound Culture - Final
Abscess Escherichia coli
Gram Stain - Final
Assessment / Plan
Intraabdominal Abscess s/p drainage - anastomotic leak vs less likely crohns
- cultures with E coli, however anaerobic not sent and would expect a mixed infection
- start cefdinir/metronidazole
- reviewed disulfram reaction with patient - not an issue
- suggest 14 days of treatment, 10/27-11/09 note relapse is possible irregardless of duration if source not controlled and has been discussed with patient by both me and other services as well
- drain management per colorectal
- follow up with colorectal and GI
[2023-10-30] MEDS: OMNICEF 300 MG PO ×2 (11:09→20:18)
--- NOTE | 2023-10-30 11:25 | W.PN.CRS1 ---
Today's Communication / Plan
-
Low residue
Continue antibiotics
Eventual drain study
Assessment/Plan
-
Assessment: Terminal ileitis with associated abscess
Plan:
1.� Vital signs normal.� WBC normal.
2.� Continue IR drain.� Cultures pending. He will need a drain study in 1 weeks time.
3.� Advance diet to low residue. We discussed going slow.
4.� Appreciate GI consult
5.� Continue IV Zosyn. ID is managing antibiotics.
6.� Okay for discharge from our perspective when he is medically cleared. He will follow-up in our office with Dr. Storey in 1 to 2 weeks. In the meantime a drain study has been ordered.
Subjective Data
Subjective Data
Date of Service: October 30, 2023
Patient states he feels much improved today. He has less abdominal pain. He denies nausea or vomiting. He is still having some loose stool.
Objective Data
-
Vital Signs
Temp Pulse Resp BP Pulse Ox
98.6 F 76 14 116/74 95
10/30/23 07:05 10/30/23 07:05 10/30/23 07:05 10/30/23 07:05 10/30/23 07:05
Intake & Output
10/29/23 10/30/23 10/31/23
06:59 06:59 06:59
Intake Total 1989 / 216
Output Total 50 / 50 30 / 30
Balance 1939 / 1939 2129 / 2129
Intake:
Oral fluids 240 / 240 1360 / 1360
IV fluids (Total) 1500 / 1500 600 / 600
IV piggybacks 250 / 250 200 / 200
Output:
Drain Output (Total) 50 / 50 30 / 30
Right Lower Abdomen Shimon- 50 / 50 30 / 30
Polk Placed in IR
Other:
Number of approximated MODERATE 2 2
amounts of urine
Lab Results
10/30/23 08:28
10/30/23 08:28
Physical Exam
-
General: No Acute Distress and AOx3
Abdomen: Soft, Non Distended, Tender (Mild, right lower quadrant) and Other (Thin green output in drain)
Skin: Warm and Dry
--- NOTE | 2023-10-30 14:02 | CM ---
Patient seen bedside with son, reports no new concerns at this time. CM will continue to follow for discharge planning needs.
Plan; home no needs anticipated.
[2023-10-30 15:00] VITALS: BP 144/85
[2023-10-30] MEDS: FLAGYL 500 MG PO (16:30)
[2023-10-30 22:31] VITALS: BP 132/76
[2023-10-30] MEDS: ZESTRIL 10 MG PO (22:33)
[2023-10-30 23:30] VITALS: BP 100/56
[2023-10-31] MEDS: FLAGYL 500 MG PO ×2 (00:22→08:22)
[2023-10-31] MEDS: TYLENOL 650 MG PO (06:11)
--- NOTE | 2023-10-31 06:42 | W.PN.GI.CBS2 ---
Today's Communication / Plan
-
See assessment and plan for details.
Assessment / Plan
-
1. Right lower quadrant abscess: With ileitis that may be more reactionary rather than cause, with chronic symptoms since resection for Meckel's diverticulum, likely more related to anastomotic stricture, possible fistulization from this.
Underlying Crohn's disease seems much less likely. He is now status post IR drainage, and overall feeling much better, with improved tenderness and only serosanguineous output. There is no obvious rafael perforation on CT scan and he remains
benign. He is tolerate low residue diet without difficulty. Assuming he continues to improve would plan outpatient MR enterography and colonoscopy in the next 6 to 8 weeks, and if negative may need to consider revision of anastomosis. We
discussed a very low residue diet going forward once he is discharged.
He is okay to DC from GI standpoint. We will sign off for now, please call back with any further questions.
Subjective
Subjective
Date of Service: October 31, 2023
Patient doing well overall, no significant Lan pain, no fevers or chills overnight, minimal drainage.
Objective
Data Reviewed
Laboratory Data:
Laboratory Results
10/30/23 08:28
10/30/23 08:28
Laboratory Results
PT 15.5 Sec (11.4-14.6) H 10/28/23 06:40
INR 1.25 10/28/23 06:40
Total Bilirubin 1.8 mg/dl (0.2-1.3) H 10/27/23 16:51
AST 23 U/L (17-59) 10/27/23 16:51
ALT 19 U/L (0-50) 10/27/23 16:51
Alkaline Phosphatase 109 U/L (38-126) 10/27/23 16:51
Lipase 70 U/L (23-300) 10/27/23 16:51
Vital Signs and I&O:
Vital Signs
Temp Pulse Resp BP Pulse Ox
97.9 F 67 18 100/56 97
10/30/23 23:30 10/30/23 23:30 10/30/23 23:30 10/30/23 23:30 10/30/23 23:30
I&O
10/29/23 10/30/23 10/31/23
06:59 06:59 06:59
Intake Total 1989 2160 / 2160 1860 / 186
Output Total 50 / 50
Balance 1939 / 1939 2130 / 2130 1848 / 184
Physical Exam
Physical Exam
General: NAD
Abdomen: normal bowel sounds, soft, minimal right lower quadrant tenderness, no masses or bruits, no ascites
[2023-10-31 07:30] VITALS: BP 118/85
[2023-10-31] MEDS: OMNICEF 300 MG PO (08:22)
--- NOTE | 2023-10-31 09:13 | W.DS.TRANS ---
DC Summary - [employer]
-
Discharge Instructions:
Discharge Diagnosis/Procedures Acute terminal ileitis abscess
Believed to be at site of prior anastomosis for
Meckel's diverticulum
Diet Low Residue
Instructions:
Stand-Alone Forms:
Changes to Home Medications: Yes
Discharge Medications:
DC Medications w/original date entered in [employer]
aspirin 81 mg tablet,delayed release (Aspir-) 81 mg PO 06/20/11
lisinopril 10 mg tablet 10 mg PO 06/20/11
cefdinir 300 mg capsule 300 mg PO Q12 #18 caps 10/31/23
metronidazole 500 mg tablet 500 mg PO Q8 #27 tabs 10/31/23
Home Medication Changes
cefdinir 300 mg capsule 300 mg PO Q12 #18 caps 10/31/23
metronidazole 500 mg tablet 500 mg PO Q8 #27 tabs 10/31/23
Pending Results: No
Total time spent discharging patient (in min): 39
--- NOTE | 2023-10-31 10:38 | W.PN.ID1 ---
Date of Service
Date of Service: October 31, 2023
Today's Communication
- continue cefdinir/metronidazole - suggest 14 days of treatment, 10/27-11/09
Assessment / Plan
Intraabdominal Abscess s/p drainage - anastomotic leak vs less likely crohns
- continue cefdinir/metronidazole - suggest 14 days of treatment, 10/27-11/09 note relapse is possible irregardless of duration if source not controlled and has been discussed with patient by both me and other services as well
- reviewed disulfram reaction with patient - not an issue
- drain management per colorectal
- follow up with colorectal and GI
Chief Complaint
-: Other (intraabdominal abscess)
Subjective / Review of Systems
afebrile
bp stable
tolerating current therapies
mild abdominal pain
eating
Vital Signs / Physical Exam
Vital Signs
Vital Signs
Temp Pulse Resp BP Pulse Ox
97.9 F 65 16 118/85 98
10/31/23 07:30 10/31/23 07:30 10/31/23 07:30 10/31/23 07:30 10/31/23 07:30
Physical Exam
Constitutional: No Acute Distress
Cardiovascular: Regular Rate and S1/S2; Negative Murmur or Rub
Pulmonary: Clear and Symmetric; Negative Wheezes or Rales
Gastrointestinal: Soft, Tender (mild), Non Distended and Normal Bowel Sounds
Skin: Warm and Dry; Negative Rash or Jaundice
Lines: Other (drain - still with turbid fluid)
Objective Data
Lab Data
Lab Results
10/30/23 08:28
10/30/23 08:28
PT 15.5 Sec (11.4-14.6) H 10/28/23 06:40
INR 1.25 10/28/23 06:40
Estimated Creat Clear 76 ml/min 10/30/23 08:28
Total Bilirubin 1.8 mg/dl (0.2-1.3) H 10/27/23 16:51
AST 23 U/L (17-59) 10/27/23 16:51
ALT 19 U/L (0-50) 10/27/23 16:51
Alkaline Phosphatase 109 U/L (38-126) 10/27/23 16:51
Most recent labs reviewed.
Micro Results:
10/29/23 09:14 Salmonella/Shigella Culture - Final
Feces/Stool No Salmonella, Shigella, Aeromonas or Plesiomonas species
isolated.
Campylobacter Culture - Preliminary
Culture in Progress
- Preliminary
Culture in Progress
Shiga Toxin Test - Final
No E. coli Shiga Toxin 1 or 2 detected.
10/28/23 17:06 Wound Culture - Final
Abscess Escherichia coli
Gram Stain - Final
--- NOTE | 2023-10-31 10:59 | W.DCSUMMARY ---
Discharge Summary
Discharge Data
Date of Admission: 10/27/23
Date of Discharge: 10/31/23
-
Pending Results: No
Hospital Course
63-year-old male with a past history of hypertension hyperlipidemia left inguinal hernia and also a history of a perforated Meckel's diverticulum that required small bowel resection with peritoneal lavage back in 2010 at that time he had about 15 cm
of terminal ileum removed but on this occasion presented with right lower quadrant pain for last 4 days prior to presentation with some diarrhea no nausea or vomiting and a CT scan showing terminal ileitis associated with a 3 cm abscess a comparison
to prior CT of 2019 showed questionable thickening at that time near the small bowel anastomosis and areas of the colon. He has had recurrent abdominal pains in this area 4-6 times a year but has been self-limited he was admitted he was placed on
white spectrum antibiotic coverage and placed n.p.o. and consultation was placed with the colorectal service.
After their examination and opinion it was felt that the patient may benefit from IR placement of a BERNA drain that was done on 28 October returning 15 mL of purulent return given concern for possible underlying inflammatory bowel disease such as
Crohn's disease consultation was placed to the GI service who felt this was low likelihood but agreed to pursue a small bowel enterography in 6 to 8 weeks for further addressing and investigation. Patient was slowly increased on his diet he was
continued on wide spectrum antibiotic coverage until finally getting results of his culture showing E. coli and viridans strep consultation was placed with the ID service with recommendations for transition to cefdinir in combination with
metronidazole for the next 10 days with completion of therapy scheduled to be 09 November. ID reviewed the possible disulfiram reaction as a possibility to the patient and felt to be not initial/drain management with BERNA will be discussed by
colorectal and followed up in 2 weeks and he will have further follow-up with the GI service in 6 to 8 weeks
Discharge diagnosis will be terminal ileitis abscess believed to be an complication from prior anastomosis for prior Meckel's diverticular repair
Discharge Plan
-
Patient Disposition: Home with Home Care
Discharge Diagnosis/Procedures: Acute terminal ileitis abscess
Believed to be at site of prior anastomosis for Meckel's diverticulum
Diet: Low Residue
Activity Restrictions/Additional Instructions:
You will need to have a drain study with interventional radiology. This is to determine if the drain needs to remain in place. Please to schedule as soon as possible for about 1 week's time. Please call this phone number to schedule the
appointment: [phone]. An order has already been faxed from our office.
Referrals:
Larry Romero DO [Family Provider] -
Manuela Camacho MD [Active] - (call GI to arrange 3-4 week GI follow up. consider eventual colonoscopy and MR enterography to assess small bowel)
Adalberto Storey MD [Active] - in one to two weeks
Prescriptions:
New
metronidazole 500 mg Tablet
500 mg PO Q8 Qty: 27 0RF
cefdinir 300 mg Capsule
300 mg PO Q12 Qty: 18 0RF
Continued
aspirin [Aspir-81] 81 MG tablet,delayed release (DR/EC)
81 mg PO HS
Rx Instructions:
Patient states takes a few times a week but days vary
lisinopril 10 MG tablet
10 mg PO HS
Patient Comments:
pt does not know dose
Discontinued
ibuprofen [Advil Liqui-Gel] 200 MG capsule
200 mg PO PRN PRN (Reason: pain)
--- NOTE | 2023-10-31 11:03 | W.PN.CRS1 ---
Today's Communication / Plan
-
Okay for discharge, drain study in 1 to 2 weeks.
Assessment/Plan
-
Assessment: Terminal ileitis with associated abscess
Plan:
1.� Vital signs normal.�
2.� Continue IR drain.� Cultures pending.� He will need a drain study in 1 to 2 weeks time.
3.� Advance diet to low residue.� We discussed going slow.
4.� Appreciate GI consult
5.� Continue IV Zosyn. ID is managing antibiotics.
6.� Okay for discharge from our perspective when he is medically cleared.� He will follow-up in our office with Dr. Storey in 1 to 2 weeks.� In the meantime a drain study has been ordered.
Subjective Data
Subjective Data
Date of Service: October 31, 2023
Patient states he has no nausea or vomiting. He is urinating without difficulty. His pain is controlled. He is still having loose bowel movements.
Objective Data
-
Vital Signs
Temp Pulse Resp BP Pulse Ox
97.9 F 65 16 118/85 98
10/31/23 07:30 10/31/23 07:30 10/31/23 07:30 10/31/23 07:30 10/31/23 07:30
Intake & Output
10/30/23 10/31/23 11/01/23
06:59 06:59 06:59
Intake Total 2160 / 2160 1859 / 1859
Output Total
Balance 2130 / 2130 1848 / 1848
Intake:
Oral fluids 1360 / 1360 1860 / 1860
IV fluids (Total) 600 / 600
IV piggybacks 200 / 200
Output:
Drain Output (Total)
Right Lower Abdomen Shimon-
Polk Placed in IR
Other:
Number of approximated MODERATE 2 2
amounts of urine
Number of approximated LARGE 5
amounts of urine
Lab Results
10/30/23 08:28
10/30/23 08:28
Physical Exam
-
General: No Acute Distress and AOx3
Abdomen: Soft, Non Distended, Tender (Around BERNA drain site) and Other (BERNA output thin and green)
Skin: Warm
--- NOTE | 2023-10-31 11:52 | VNURNOTE ---
Home Health Liaison met with patient at 1130 to discuss [facility] nurse visits, schedule and homebound status. Patient is agreeable and understands that visits at home will be 2-3 x per week to assess and teach medical management and [facility] drain care.
Patient is learning [facility] drain care here.
[facility] brochure provided with contact information. Patient is aware that [facility] will contact him for start of care in 1-2 days after discharge from .
[facility] referral completed in [facility].
--- NOTE | 2023-10-31 12:08 | CM ---
Patient seen bedside, CM discussed referral to [facility] for drain care, patient agreeable. Script obtained from Hospitalist for saline flushes, placed in patients chart. Patient reports his or daughter will provide transportation home upon
discharge. CM will continue to follow for discharge planning needs.
Plan; home with [facility] and family.
== END 2023-10-31 15:08 | disposition home health service (06) | DRG 394 ==
LOC: 4 WEST ACU 21:34
PROVIDERS: Radiology Vascular & Interventional Radiology; Registered Nurse; ADMITTING PHYSICIAN Internal Medicine; ATTENDING PHYSICIAN Internal Medicine; CONSULT PHYSICIAN Internal Medicine Gastroenterology; CONSULT PHYSICIAN Student in an Organized Health Care Education/Training Program; EMERGENCY PHYSICIAN Emergency Medicine; FAMILY PHYSICIAN Family Medicine; OTHER PHYSICIAN Surgery
PROC: 0W9F30Z Drainage of Abdominal Wall with Drainage Device, Percutaneous Approach (ICD-10-PCS; 2023-10-28)
DX: K91.89 Other postprocedural complications and disorders of digestive system (principal); K50.014 Crohn's disease of small intestine with abscess; K57.80 Diverticulitis of intestine, part unspecified, with perforation and abscess without bleeding; I10 Essential (primary) hypertension; K40.90 Unilateral inguinal hernia, without obstruction or gangrene, not specified as recurrent; Q43.0 Meckel's diverticulum (displaced) (hypertrophic)
CPT/HCPCS: 49406; 74177; 80048; 80053; 82248; 83690; 85025; 85027; 85610; 87045; 87046; 87070; 87077; 87186; 87205; 87427; 96361; 96365; 96366; 99152; 99153; 99285; Q9967

== ENCOUNTER → 2023-11-07 13:10 | Outpatient (REF) | payer OTHER, SELFPAY ==
[2023-11-07 13:57] VITALS: BP 119/80; BP_SYST 82
== END ==
LOC: RADI 13:10
PROVIDERS: ATTENDING PHYSICIAN Radiology Diagnostic Radiology; FAMILY PHYSICIAN Family Medicine
DX: Z46.82 Encounter for fitting and adjustment of non-vascular catheter (principal); K65.1 Peritoneal abscess
CPT/HCPCS: 49424; 76080

== ENCOUNTER → 2024-01-23 07:50 | Outpatient (REF) | payer OTHER, SELFPAY | LOC: MRI 3T 07:50 | PROVIDERS: ATTENDING PHYSICIAN Nurse Practitioner Family; FAMILY PHYSICIAN Family Medicine | DX: K52.9 Noninfective gastroenteritis and colitis, unspecified (principal) | CPT/HCPCS: 72197; 74183; A9575 ==

== ENCOUNTER → 2024-02-05 06:30 | Day surgery (SDC) | payer OTHER, SELFPAY | LOC: GI 06:30 | PROVIDERS: ATTENDING PHYSICIAN Internal Medicine Gastroenterology | DX: K57.30 Diverticulosis of large intestine without perforation or abscess without bleeding (principal); K64.8 Other hemorrhoids; R93.3 Abnormal findings on diagnostic imaging of other parts of digestive tract; Z98.890 Other specified postprocedural states | CPT/HCPCS: 45378 ==